=== PATIENT | male | born 1995 | race Caucasian/White ===

== ENCOUNTER → 2016-12-21 | Outpatient (CLI) | payer BC ==
[2015-01-12 09:10] VITALS: BP 122/68
--- NOTE | 2016-12-21 15:06 | MRI ---
MR right shoulder without contrast Indication: Right shoulder pain after trauma Technique: Multiplanar multi sequence imaging through the right shoulder without contrast. Comparison: None available. Findings: Muscle bellies are normal. AC joint is intact with type 2 acromion noted. There is marked e dm at the greater tuberosity. Cut nondisplaced fracture line suggested on coronal image 8 and sagit christian image 6. Biceps tendon appears intact. Subscapularis is normal. Supraspinatus and infraspinatus are relatively intact with fluid seen tracking into the substance of the infraspinatus on coronal image 11. Intrasu bstance tearing versus tendinosis and edema tracking from the greater tuberosity injury suggested. Th e anterior and anterior inferior glenoid labrum is probably torn see axial image 15 through 18. Super ior labrum shows high-signal without displaced tear. SLAP tear possible. Impression: 1. Nondisplaced fracture of the greater tuberosity. This is probably from traction from the rotator c uff at the time of the injury. 2. High signal within the substance of the infraspinatus distal tendon compatible with intrasubstance tear most likely. Tendinosis and edema tracking from the fracture are possible. Consider arthrograph ic follow-up. 3. Mild articular surface fraying of the supraspinatus versus low-grade articular surface tear. 3. High signal in the superior glenoid labrum and the anterior glenoid labrum suggest possible tear a s well. Arthrogram follow-up may be helpful. Reported By:
== END | disposition home or self-care (01) ==
LOC: RAD 13:09
PROVIDERS: ATTEND Internal Medicine
DX: M25.511 Pain in right shoulder (principal); S42.255A Nondisplaced fracture of greater tuberosity of left humerus, initial encounter for closed fracture; X58.XXXA Exposure to other specified factors, initial encounter
CPT/HCPCS: 73221